=== PATIENT | female | born 1985 | race Caucasian/White ===

== ENCOUNTER 2018-01-21 15:55 | Emergency (ER) | payer SELFPAY ==
[2018-01-21 16:02] VITALS: BP 118/74
== END 2018-01-21 17:20 | disposition left against medical advice (07) ==
LOC: ED 16:30
DX: R41.82 Altered mental status, unspecified (principal); F17.200 Nicotine dependence, unspecified, uncomplicated; E11.9 Type 2 diabetes mellitus without complications
CPT/HCPCS: 82962; 99283